=== PATIENT | female | born 1985 | race Caucasian/White ===

== ENCOUNTER 2020-05-04 05:55 | Inpatient (IN) | payer BC ==
--- NOTE | 2020-05-03 12:53 | P.HPOB ---
History of Present Illness H&P Date: 05/03/20 Chief Complaint: Requesting induction of labor This patient is a pleasant 34-year-old 1 para 0 female estimated date of confinement 05/09/2020 estimated gestational age 39-2/7 weeks who presents to labor and delivery for induction of labor. Patient transferred to [facility] at approximately 32 weeks from [place]. Patient's history is such that she lived there for approximately 13 years with her and this was a planned . Unfortunately in the middle of the unexpectedly from a myocardial infarction. Patient subsequently moved back to [place] to be with her family. Patient's is complicated by advanced maternal age. She did have genetic testing which was normal and she's had normal testing with growth ultrasounds and nonstress tests. Patient's cervix is now favorable and I recommend she proceed with delivery. Review of Systems Genitourinary: Reports Menstruation: Reports amenorrhea Past Medical History Past Medical History: No Reported History History of Any Multi-Drug Resistant Organisms: None Reported Past Surgical History: Adenoidectomy, Tonsillectomy Past Anesthesia/Blood Transfusion Reactions: No Reported Reaction Past Psychological History: No Psychological Hx Reported Smoking Status: Former smoker Past Alcohol Use History: None Reported Past Drug Use History: None Reported Medications and Allergies Home Medications Medication Instructions Recorded Confirmed Type Aspirin EC [Ecotrin Low Dose] 1 PO DAILY 05/03/20 History Exam - OBG Physical Exam Abdomen: bowel sounds normal, no diffuse tenderness, no bruit present, no guarding noted, no hepatomegaly, no splenomegaly, no mass Vulva: both: normal Vagina: normal moisture, no discharge Cervix: Cervix in the office is 2 cm dilated and soft. Uterus: enlarged (Otherwise 38 cm.) Results blood work shows she is O positive, rubella immune, RPR nonreactive, HIV is nonreactive, hepatitis B is negative, Glucola was 142 with a normal three-hour gtt., free cell DNA was negative (46 XX), most recent growth ultrasound showed to be at the 62nd percentile. Group B strep was negative. Assessment and Plan Assessment: This is a pleasant 34-year-old 1 para 0 female 39-2/7 weeks gestation who is presenting for requested induction of labor. Plan is induction of labor and anticipate vaginal delivery. (1) 39 weeks gestation of Status: Acute Code(s): Z3A.39 - 39 WEEKS GESTATION OF SNOMED Code(s): 21889209 (2) Elderly primigravida Status: Acute Code(s): O09.519 - SUPERVISION OF ELDERLY PRIMIGRAVIDA, UNSPECIFIED TRIMESTER SNOMED Code(s): 64823499 (3) Elective induction of labor planned Status: Acute Code(s): LVL0058 - SNOMED Code(s): 946490267
[2020-05-04] MEDS ORDERED: METHYLERGONOVINE 0.2 MG/ML 1 ML AMP IM PRN (06:10)
[2020-05-04] MEDS ORDERED: TERBUTALINE 1 MG/ML VIAL SQ PRN (06:10)
[2020-05-04] MEDS ORDERED: OXYTOCIN 30 UNITS/500 ML NS 30 UNIT in SALINE 1 500ML.BAG IV SCH (06:10)
[2020-05-04] MEDS ORDERED: CARBOPROST TROMETHAMINE 250 MCG/ML 1 ML AMP IM PRN (06:10)
[2020-05-04] MEDS ORDERED: OXYTOCIN 10 UNIT/ML 1 ML VIAL IM PRN (06:10)
[2020-05-04] MEDS ORDERED: LIDOCAINE 0.5% (PF) 5 MG/ML (50 ML SDV) SQ PRN (06:10)
[2020-05-04] MEDS: LACTATED RINGERS 1,000 ML IV SCH ×3 (06:20→12:00)
[2020-05-04 06:29] LABS: Basophils % (A) 0 %; Eosinophils # (A) 0.2 k/uL (0-0.7); Eosinophils % (A) 2 %; HCT 36.9 % (34.0-46.0); HGB 11.6 gm/dL (11.4-16.0); Hypochromasia Slight; Lymphocytes # (A) 2.7 k/uL (1.0-4.8); Lymphocytes % (A) 19 %; MCH 25.3 pg (25.0-35.0); MCHC 31.4 g/dL (31.0-37.0); MCV 80.4 fL (80.0-100.0); Mean Platelet Volume 8.4; Monocytes # (A) 0.5 k/uL (0-1.0); Monocytes % (A) 4 %; Neutrophils # (A) 10.7 k/uL (1.3-7.7); Neutrophils % (A) 74 %; Platelet Count 349 k/uL (150-450); RBC 4.59 m/uL (3.80-5.40); RDW 15.2 % (11.5-15.5); WBC 14.4 k/uL (3.8-10.6)
[2020-05-04] MEDS ORDERED: BUTORPHANOL 1 MG/ML 1 ML VIAL IV PRN (11:02)
[2020-05-04] MEDS ORDERED: ROPIVACAINE 5MG/ML 20ML VIAL ONE (11:19)
[2020-05-04] MEDS ORDERED: ePHEDrine SULFATE/0.9% NACL/PF 50 MG/5 ML SYRINGE IV ONE (11:19)
[2020-05-04] MEDS ORDERED: SODIUM CHLORIDE 0.9% 100 ML BAG ONE (11:19)
[2020-05-04] MEDS ORDERED: fentaNYL (PF) 50 MCG/ML 5 ML AMP ONE (11:19)
[2020-05-04] MEDS ORDERED: OXYTOCIN 20 UNITS/1000 ML NS 1,000 ML IV SCH (15:57)
[2020-05-04] MEDS ORDERED: bisacodyL 10 MG SUPP RECTAL PRN (15:57)
[2020-05-04] MEDS ORDERED: diphenhydrAMINE 25 MG CAP PO PRN (15:57)
[2020-05-04] MEDS ORDERED: diphenhydrAMINE 50 MG/ML 1 ML VIAL IVP PRN (15:57)
[2020-05-04] MEDS ORDERED: ACETAMINOPHEN TAB 325 MG TAB PO PRN (15:57)
[2020-05-04] MEDS ORDERED: LANOLIN CREAM 5 GM TUBE TOPICAL PRN (15:57)
[2020-05-04] MEDS ORDERED: HYDROCORTISONE 2.5% RECTAL CREAM 30 GM TUBE RECTAL PRN (15:57)
[2020-05-04] MEDS ORDERED: SIMETHICONE 80 MG CHEWABLE PO PRN (15:57)
[2020-05-04] MEDS ORDERED: ZOLPIDEM 5 MG TAB PO PRN (15:57)
[2020-05-04] MEDS ORDERED: BENZOCAINE/MENTHOL SPRAY 1 GM/SPRAY AEROSOL TOPICAL PRN (15:57)
[2020-05-04] MEDS: SENNOSIDES-DOCUSATE SODIUM 1 EACH TAB PO SCH ×2 (16:39→19:56)
--- NOTE | 2020-05-04 16:40 | P.PROBDLV ---
Vaginal Delivery Note - . Vaginal Delivery Note: Normal vaginal delivery viable female Apgars 9 and 9 delivery time was 1535 hrs. Please see dictated H&P for intimate details of this patient's admission. In brief summary this is a pleasant 34-year-old 1 para 0 female 39-2/7 weeks gestation who is admitted to labor and delivery for elective induction of labor. On admission patient is 3-4 cm dilated has artificial rupture membranes for clear fluid. Patient's labor is induced with Pitocin per protocol. She gets one dose of Stadol and then an epidural for pain control. Patient's labor progresses quickly and she gets to complete. Patient pushes the head to the perineum and the posterior perineum is supported. We have controlled delivery of 's head over the intact perineum. Straight occiput posterior presentation. There is a loose nuchal cord which is reduced. Mouth and nares are bulb suctioned. Gentle downward traction we then have deliver the anterior posterior shoulder and rest this 's body. This is a vigorous viable female infant Apgars 9 and 9 delivery time is 1535 hrs. After delivery of the the umbilical cord is to quit pulsating then doubly clamped and cut. Placenta is then spontaneously delivered intact. Estimated blood loss is 200 mL. There is a second-degree laceration is repaired with 3-0 Vicryl usual fashion. Excellent reapproximation is noted. and mother are stable delivery room.
[2020-05-04] MEDS ORDERED: PRENATAL VIT-IRON-FOLIC ACID 1 EACH CAP PO ONE (17:00)
[2020-05-05] MEDS: IBUPROFEN 600 MG TAB PO PRN ×3 (03:28→18:47)
--- NOTE | 2020-05-05 06:36 | P.PNOBGVD ---
Subjective - Subjective Patient reports: Reports appetite normal, Reports voiding normally, Reports pain well controlled, Reports ambulating normally : doing well Objective - Latest Vital Signs Latest vital signs: Vital Signs Temp Pulse Resp BP Pulse Ox 05/05/20 04:00 98.1 F 82 16 124/71 100 05/04/20 20:00 99.0 F 93 16 124/76 100 05/04/20 17:53 98.1 F 90 16 123/74 05/04/20 17:23 99 16 123/71 05/04/20 16:53 85 16 128/70 05/04/20 16:38 83 16 130/71 05/04/20 16:23 88 16 125/65 05/04/20 16:08 98 16 126/61 05/04/20 15:53 98.1 F 98 16 123/61 Intake and Output 05/04/20 05/04/20 05/05/20 14:59 22:59 06:59 Intake Total 1999 420 Balance 1999 420 Intake: IV 1999 Oral 420 Other: # Voids 1 1 - Exam Lungs: bilateral: normal Chest: Normal S1, Normal S2 Extremities: Present: normal Abdomen: Present: normal appearance, soft Uterus: Present: normal, firm Assessment and Plan Assessment: day #1. Patient is resting without complaints and wishes to go home. Vital signs are stable and she is afebrile. Uterus is firm nontender. My impression is a normal course. Plan is to continue routine care discharge home later today. (1) 39 weeks gestation of Current Visit: No Status: Acute Code(s): Z3A.39 - 39 WEEKS GESTATION OF SNOMED Code(s): 98120622 (2) Elderly primigravida Current Visit: No Status: Acute Code(s): O09.519 - SUPERVISION OF ELDERLY PRIMIGRAVIDA, UNSPECIFIED TRIMESTER SNOMED Code(s): 07557668 (3) Elective induction of labor planned Current Visit: No Status: Acute Code(s): XKP1313 - SNOMED Code(s): 831045426
--- NOTE | 2020-05-05 06:40 | P.DS ---
Providers Date of admission: 05/04/20 05:55 Expected date of discharge: 05/05/20 Attending physician: Rodrigo Siddiqi Primary care physician: Stated None - Discharge Diagnosis(es) (1) 39 weeks gestation of Current Visit: No Status: Acute (2) Elderly primigravida Current Visit: No Status: Acute (3) Elective induction of labor planned Current Visit: No Status: Acute Hospital Course: Please see dictated H&P for intimate details of this patient's admission. Brief summary this is a pleasant 34-year-old 1 para 0 female 39-2/7 weeks gestation admitted for induction of labor. Patient is uncomplicated induction of labor was on have a vaginal delivery viable female infant. Please see dictated delivery note. day #1 patient wishes to go home felt stable for discharge home follow up with me in 6 weeks. Procedures: Induction of labor and normal vaginal delivery Patient Condition at Discharge: Good Plan - Discharge Summary New Discharge Prescriptions: New Ibuprofen [Motrin] 600 mg PO Q6HR PRN #40 tab PRN Reason: Mild Pain Or Fever >= 100.5 No Action Aspirin EC [Ecotrin Low Dose] 1 tab PO DAILY Pnv No.95/Ferrous Fum/Folic AC [ Multivitamin Tablet] 1 tab PO ONCE Discharge Medication List Aspirin EC [Ecotrin Low Dose] 1 tab PO DAILY 05/03/20 [History] Pnv No.95/Ferrous Fum/Folic AC [ Multivitamin Tablet] 1 tab PO ONCE 05/04/20 [History] Ibuprofen [Motrin] 600 mg PO Q6HR PRN #40 tab 05/05/20 [Rx] Follow up Appointment(s)/Referral(s): Rodrigo Siddiqi MD [STAFF PHYSICIAN] - 06/15/20 10:15 am Patient Instructions/Handouts: Vaginal Delivery (DC) Activity/Diet/Wound Care/Special Instructions: No intercourse or anything per vagina for 6 weeks. Please call if any fever, chills, excessive vaginal bleeding, and/or abdominal pain. Discharge Disposition: HOME SELF-CARE
[2020-05-05] MEDS: SENNOSIDES-DOCUSATE SODIUM 1 EACH TAB PO SCH ×2 (08:07→21:52)
--- NOTE | 2020-05-05 08:48 | US ---
EXAMINATION TYPE: US venous doppler duplex LE DATE OF EXAM: 05/05/2020 8:09 AM COMPARISON: NONE CLINICAL HISTORY: left foot redness. edema, heat and pain . SIDE PERFORMED: Bilateral TECHNIQUE: The lower extremity deep venous system is examined utilizing real time linear array sonog vaibhav with graded compression, doppler sonography and color-flow sonography. VESSELS IMAGED: External Iliac Vein (EIV) Common Femoral Vein Deep Femoral Vein Greater Saphenous Vein * Femoral Vein Popliteal Vein Small Saphenous Vein * Proximal Calf Veins (* superficial vessels) . There is normal flow, compressibility, vascular waveforms. Right Leg: Negative for DVT Left Leg: Negative for DVT IMPRESSION: No evident deep venous thrombosis at or above the knees.
[2020-05-05] MEDS: CEPHALEXIN 500 MG CAP PO SCH ×3 (11:31→22:04)
[2020-05-05] MEDS ORDERED: CEPHALEXIN 500 MG CAP PO SCH (13:00)
[2020-05-06] MEDS: IBUPROFEN 600 MG TAB PO PRN ×2 (02:02→08:18)
--- NOTE | 2020-05-06 06:48 | P.PNOBGVD ---
Subjective - Subjective Patient reports: Reports appetite normal, Reports voiding normally, Reports pain well controlled, Reports ambulating normally : doing well Objective - Latest Vital Signs Latest vital signs: Vital Signs Temp Pulse Resp BP Pulse Ox 05/06/20 00:00 98.0 F 72 16 125/83 99 05/05/20 20:00 98.2 F 82 16 124/82 98 05/05/20 16:00 98.0 F 74 16 117/70 98 05/05/20 08:00 98.1 F 89 18 124/76 97 Intake and Output 05/05/20 05/05/20 05/06/20 14:59 22:59 06:59 Other: # Voids 1 2 1 Assessment and Plan Assessment: day #2. Patient developed some left foot swelling and pain and evaluation showed this to be a superficial phlebitis. Bilateral Dopplers did not show evidence of DVT. I placed the patient on Keflex and continue her baby aspirin and it looked markedly better by this morning. Plan is to discharge home. Continue antibiotics for 7 days and we discussed signs and symptoms of DVT. (1) 39 weeks gestation of Current Visit: No Status: Acute Code(s): Z3A.39 - 39 WEEKS GESTATION OF SNOMED Code(s): 78198855 (2) Elderly primigravida Current Visit: No Status: Acute Code(s): O09.519 - SUPERVISION OF ELDERLY PRIMIGRAVIDA, UNSPECIFIED TRIMESTER SNOMED Code(s): 65660884 (3) Elective induction of labor planned Current Visit: No Status: Acute Code(s): TPD3370 - SNOMED Code(s): 405 646514
[2020-05-06] MEDS: SENNOSIDES-DOCUSATE SODIUM 1 EACH TAB PO SCH (08:06)
[2020-05-06] MEDS: CEPHALEXIN 500 MG CAP PO SCH ×2 (08:18→12:00)
[2020-05-06] MEDS ORDERED: ASPIRIN 81 MG PO SCH (09:00)
[2020-05-06 10:04] VITALS: RESP 18
[2020-05-06 11:30] VITALS: BP 126/64; PULSE 84; TEMP 98
== END 2020-05-06 16:00 | disposition home or self-care (01) | DRG 806 ==
LOC: 4FBP 05:55
PROVIDERS: ADMIT Obstetrics & Gynecology; ATTEND Obstetrics & Gynecology
DX: O69.81X0 Labor and delivery complicated by cord around neck, without compression, not applicable or unspecified (principal); O87.0 Superficial thrombophlebitis in the puerperium; Z37.0 Single live birth; O70.1 Second degree perineal laceration during delivery; Z3A.39 39 weeks gestation of pregnancy; Z87.891 Personal history of nicotine dependence; Z79.82 Long term (current) use of aspirin; Z90.89 Acquired absence of other organs
CPT/HCPCS: 85025; 86850; 86900; 86901; 93970

== ENCOUNTER → 2021-11-25 | Outpatient (CLI) | payer BC ==
--- NOTE | 2021-11-29 08:31 | MM ---
Reason for exam: screening (asymptomatic). Baseline mammogram. History: Patient had first child at age 34. Family history of breast cancer in maternal aunt. Took hormonal contraceptives for 3 years. Physical Findings: Nurse did not find any significant physical abnormalities on exam. MG 3D Screening Mammo W/Cad Bilateral CC and MLO view(s) were taken. The breast tissue is heterogeneously dense. This may lower the sensitivity of mammography. Finding: There is a 4 mm obscured round mass located 4 cm from the nipple. ASSESSMENT: Incomplete: need additional imaging evaluation, BI-RAD 0 RECOMMENDATION: Ultrasound of the right breast. [facility] will attempt to contact patient to return for ultrasound.
== END | disposition home or self-care (01) ==
LOC: RADMAMWWP 10:12
PROVIDERS: ATTEND Obstetrics & Gynecology
DX: Z12.31 Encounter for screening mammogram for malignant neoplasm of breast (principal); Z80.3 Family history of malignant neoplasm of breast
CPT/HCPCS: 77063; 77067

== ENCOUNTER → 2021-12-06 | Outpatient (CLI) | payer BC ==
--- NOTE | 2021-12-06 08:52 | USB ---
Reason for exam: additional evaluation requested from abnormal screening. History: Patient had first child at age 34. Family history of breast cancer in maternal aunt. Took hormonal contraceptives for 3 years. Physical Findings: A clinical breast exam by your physician is recommended on an annual basis and results should be correlated with mammographic findings. US Breast Workup Limited RT Right limited breast ultrasound including focal area of concern, retroareolar and axilla demonstrates no cystic or solid lesion seen. These results were verbally communicated with the patient and result sheet given to the patient on 12/06/21. ASSESSMENT: Incomplete: need additional imaging evaluation, BI-RAD 0 RECOMMENDATION: Special view mammogram of the right breast.
--- NOTE | 2021-12-06 08:54 | MM ---
Reason for exam: additional evaluation requested from abnormal screening. Last mammogram was performed less than 1 month ago. History: Patient had first child at age 34. Family history of breast cancer in maternal aunt. Took hormonal contraceptives for 3 years. MG 3D Work Up W/Cad RT Spot compression CC and LM view(s) were taken of the right breast. Prior study comparison: November 25, 2021, bilateral MG 3d screening mammo w/cad. The breast tissue is heterogeneously dense. This may lower the sensitivity of mammography. No distinct lesion persists. These results were verbally communicated with the patient and result sheet given to the patient on 12/06/21. ASSESSMENT: Negative, BI-RAD 1 RECOMMENDATION: Routine screening mammogram of both breasts at age 39.
== END | disposition home or self-care (01) ==
LOC: RADUSWWP 07:47
PROVIDERS: ATTEND Obstetrics & Gynecology
DX: R92.8 Other abnormal and inconclusive findings on diagnostic imaging of breast (principal); Z80.3 Family history of malignant neoplasm of breast
CPT/HCPCS: 77061; 77065

== ENCOUNTER → 2023-01-02 | Outpatient (CLI) | payer BC ==
--- NOTE | 2023-01-02 13:17 | US ---
EXAMINATION TYPE: US pelvic complete DATE OF EXAM: 01/02/2023 COMPARISON: NONE CLINICAL HISTORY: R10.30 LOWER ABD PAIN. TECHNIQUE: Transabdominal (TA). Date of LMP: 12/20/2022 EXAM MEASUREMENTS: Uterus: 9.4 x 3.9 x 5.4 cm Endometrial Stripe: 1.3 cm Right Ovary: 2.4 x 1.8 x 3.5 cm Left Ovary: 3.5 x 2.8 x 3.6 cm 1. Uterus: Anteverted small posterior fibroid measures 1.1 x 1.1 x 1.8 cm. 2. Endometrium: measures 1.3 cm 3. Right Ovary: wnl 4. Left Ovary: 2.4 x 1.8 x 2.6 cm cyst. 5. Bilateral Adnexa: wnl 6. Posterior cul-de-sac: no free fluid Preliminary results called to Nohemi Nowak, 2.6 cm left ovarian cyst, and small uterine fibroid. Heterogeneous anteverted uterus. Endometrial stripe is abnormally thickened for a late proliferative phase of menstrual cycle. There is 1.8 cm subserosal fibroid in the posterior fundus. Consider follow -up based on clinical correlation. No free fluid. Ovaries symmetric and normal in size. Left ovary has 2.6 cm thin-walled cyst suspected corpus luteal cyst. No suspicious extra ovarian adnexal masses. IMPRESSION: No concerning adnexal masses are present. Small posterior 1.8 cm subserosal fibroid.
== END | disposition home or self-care (01) ==
LOC: RADUSWWP 12:29
PROVIDERS: ATTEND Family Medicine
DX: D25.2 Subserosal leiomyoma of uterus (principal); R10.30 Lower abdominal pain, unspecified
CPT/HCPCS: 76856

== ENCOUNTER → 2023-03-12 | Outpatient (CLI) | payer BC ==
--- NOTE | 2023-03-12 13:03 | US ---
EXAMINATION TYPE: US pelvic complete DATE OF EXAM: 03/12/2023 COMPARISON: Pelvic ultrasound 01/02/2023 CLINICAL INDICATION: Female, 37 years old with history of N83.202 OVARIAN CYST LT; h/o left ovarian c yst and fibroid, no symptoms today TECHNIQUE: TA. Transabdominal sonographic images of the pelvis were acquired. Date of LMP: 03/05/2023 EXAM MEASUREMENTS: Uterus: 9.0 x 4.2 x 3.6 cm Endometrial Stripe: 0.6 cm Right Ovary: 2.7 x 2.2 x 2.1 cm Left Ovary: 3.0 x 1.5 x 1.8 cm 1. Uterus: Anteverted 1.3 x 1.1 x 0.9cm posterior fundal fibroid seen 2. Endometrium: wnl 3. Right Ovary: multiple follicles under 1cm, wnl 4. Left Ovary: multiple follicles under 1cm, wnl 5. Bilateral Adnexa: wnl 6. Posterior cul-de-sac: wnl Heterogenous anteverted uterus. Endometrial stripe is within normal limits. There is a 1.3 cm subsero tg fibroid in the posterior fundus redemonstrated. No free fluid. Both ovaries appear unremarkable w ith a few follicles demonstrate it. Previously seen left ovarian cyst has decreased in size. IMPRESSION: 1. No acute pelvic process. 2. Small posterior subserosal fibroid redemonstrated.
== END | disposition home or self-care (01) ==
LOC: RADUSWWP 12:23
PROVIDERS: ATTEND Family Medicine
DX: N83.202 Unspecified ovarian cyst, left side (principal); D25.2 Subserosal leiomyoma of uterus
CPT/HCPCS: 76856

== ENCOUNTER 2023-06-06 11:40 | Day surgery (SDC) | payer BC ==
[2023-06-01 13:24] VITALS: BMI 24.3
[2023-06-06] MEDS ORDERED: LACTATED RINGERS 1,000 ML IV SCH (12:29)
[2023-06-06] MEDS ORDERED: LIDOCAINE 1% (10MG/ML) FOR IV START INTRADERMA PRN (12:29)
[2023-06-06] MEDS ORDERED: LACTATED RINGERS 1,000 ML IV ONE (12:29)
[2023-06-06 12:47] VITALS: TEMP 97
[2023-06-06] MEDS ORDERED: PROPOFOL 10 MG/ML 20 ML VIAL IV ONE (12:48)
--- NOTE | 2023-06-06 13:03 | P.PCN ---
Date of Procedure: 06/06/23 Procedure(s) Performed: BRIEF HISTORY: Patient is a 37-year-old pleasant white female scheduled for an elective colonoscopy as a part of evaluation of intermittent rectal bleeding. PROCEDURE PERFORMED: Colonoscopy with snare polypectomy. PREOPERATIVE DIAGNOSIS: Intermittent rectal bleeding. IV sedation per Anesthesia. PROCEDURE: After informed consent was obtained, the patient, was brought into the endoscopy unit. IV sedation was administered by Anesthesia under continuous monitoring. Digital rectal examination was normal. Initially the Olympus CF-160 flexible video colonoscope was then inserted in the rectum, gradually advanced into the cecum without any difficulty. Careful examination was performed as the scope was gradually being withdrawn. Ileocecal valve and the appendiceal orifice were visualized and appeared normal. Prep was excellent. Mucosa of the cecum, ascending colon, transverse colon, descending colon, sigmoid colon, appeared normal. In the distal sigmoid colon there was a 5 mm polyp removed by snare polypectomy. Rest of the and rectum appeared normal. Retroflexion was performed in the rectum and small internal hemorrhoids were seen. The patient tolerated the procedure well. IMPRESSION: 5 mm distal sigmoid colon polyp status post polypectomy Small internal hemorrhoids RECOMMENDATIONS: Findings of this examination were discussed with the patient as well as a family. She was advised to be a high-fiber diet and take fiber supplements a regular basis. Avoid straining and constipation. Follow with the biopsy results and if the biopsy reveals adenoma she can have a repeat colonoscopy in 5 years.
[2023-06-06 13:14] VITALS: PULSE 63
[2023-06-06 13:26] VITALS: BP 117/80; RESP 16
== END 2023-06-06 13:58 | disposition home or self-care (01) ==
LOC: ORWHC2ENDO 11:40
PROVIDERS: ATTEND Internal Medicine Gastroenterology
DX: D12.5 Benign neoplasm of sigmoid colon (principal); K64.8 Other hemorrhoids; Z79.899 Other long term (current) drug therapy
CPT/HCPCS: 81025; 88305; 45385; J2704

== ENCOUNTER → 2023-11-21 | Outpatient (CLI) | payer BC ==
--- NOTE | 2023-11-21 20:58 | US ---
EXAMINATION TYPE: US transvaginal DATE OF EXAM: 11/21/2023 COMPARISON: NONE CLINICAL INDICATION: Female, 38 years old with history of N83.201 BILATERAL OVARIAN CYSTS Z80.41 FAMI LY HISTORY; mother had ovarian CA last year, no symptoms, TECHNIQUE: TV. Transvaginal sonographic images Date of LMP: 11/10/2023 EXAM MEASUREMENTS: Uterus: 9.8 x 4.5 x 4.4 cm Endometrial Stripe: 0.9 cm Right Ovary: 4.1 x 3.6 x 2.3 cm Left Ovary: 2.8 x 1.6 x 2.2 cm 1. Uterus: Anteverted wnl 2. Endometrium: wnl 3. Right Ovary: 2.2 x 1.6 x 1.5cm simple cyst 4. Left Ovary: 0.9cm follicle seen 5. Bilateral Adnexa: wnl 6. Posterior cul-de-sac: wnl IMPRESSION: 1. Endometrium within normal limits for thickness. 2. No evidence for mass. 3. The right ovary demonstrates a simple dominant follicle. 4. No lymphadenopathy identified.
== END | disposition home or self-care (01) ==
LOC: RADUSWWP 16:05
PROVIDERS: ATTEND Obstetrics & Gynecology
DX: N83.201 Unspecified ovarian cyst, right side (principal); Z80.41 Family history of malignant neoplasm of ovary
CPT/HCPCS: 76830

== ENCOUNTER → 2024-11-03 | Outpatient (CLI) | payer BC ==
--- NOTE | 2024-11-03 13:35 | US ---
EXAMINATION TYPE: US pelvic complete DATE OF EXAM: 11/03/2024 COMPARISON: NONE CLINICAL INDICATION: Female, 39 years old with history of Z12.31 BR CA SCR Z80.41 FAM HX OVARIAN CANC ER; hx of ovarian cyst family hx of ovarian ca. TECHNIQUE: Transabdominal (TA). Doppler imaging: Not performed. FINDINGS: EXAM MEASUREMENTS: Uterus: 8.7 x 5.3 x 6.4 cm Endometrial Stripe: 1.0 cm Right Ovary: 3.2 x 1.6 x 2.1 cm Left Ovary: 3.8 x 3.2 x 2.7 cm 1. Uterus: Anteverted Hypoechoic area posterior 1.3 x 1.0 x 1.5 cm. 2. Endometrium: wnl 3. Right Ovary: Follicles seen. 4. Left Ovary: 3.8 x 3.2 x 2.7 cm 5. Bilateral Adnexa: wnl 6. Posterior cul-de-sac: wnl Anteverted uterus with redemonstration of small posterior subserosal fibroid. Endometrium is within n ormal limits. Both ovaries appear unremarkable with follicles demonstrated. Dominant follicular cyst within the left ovary. No free fluid. IMPRESSION: 1. No acute pelvic process. 2. Redemonstration of small posterior subserosal. [facility], , 11/03/2024 1:33 PM
--- NOTE | 2024-11-03 14:58 | MM ---
Reason for Exam: Screening (asymptomatic). Last mammogram was performed 2 year(s) and 11 month(s) ago. Patient History: Menarche at age 11. First Full-Term at age 34. Late child-bearing (after 29). Patient used Hormonal Contraceptives for 3 years. Maternal aunt had breast cancer. Last menstrual period: 10/25/2024 Risk Values: Grace 5 year model risk: 0.8%. NCI Lifetime model risk: 13.6%. Prior Study Comparison: 11/25/2021 Bilateral Screening Mammogram, [facility]. 12/06/2021 Right Diagnostic Mammogram, [facility]. Tissue Density: The breasts are heterogeneously dense, which may obscure small masses. Findings: Analyzed By CAD. Right breast: There is no suspicious group of microcalcifications or new suspicious mass. Left breast: There is no suspicious group of microcalcifications or new suspicious mass. Overall Assessment: Negative, BI-RAD 1 Management: Screening Mammogram of both breasts in [address] [facility] will attempt to contact patient to return for supplemental views and ultrasound if indicated. Patient should continue monthly self-breast exams. A clinical breast exam by your physician is recommended on an annual basis. This exam should not preclude additional follow-up of suspicious palpable abnormalities. Note on Grace scores and lifetime risk: 1. A Grace score greater than 3% is considered moderate risk. If this is the case, consider specialist referral to assess eligibility for a risk reducing agent. 2. If overall lifetime risk for the development of breast cancer is 20% or higher, the patient may qualify for future screening with alternating mammogram and breast MRI. [facility], , 11/03/2024 2:55 PM. Electronically signed and approved by: Gabriel Lutz DO
== END | disposition home or self-care (01) ==
LOC: RADUSWWP 12:58
PROVIDERS: ATTEND Family Medicine
DX: Z12.31 Encounter for screening mammogram for malignant neoplasm of breast (principal); R92.333 Mammographic heterogeneous density, bilateral breasts; Z80.41 Family history of malignant neoplasm of ovary; Z85.3 Personal history of malignant neoplasm of breast; Z80.3 Family history of malignant neoplasm of breast
CPT/HCPCS: 76856; 77063; 77067

== ENCOUNTER → 2024-11-07 | Outpatient (CLI) | payer BC | END | disposition home or self-care (01) | LOC: LABWHC1 12:21 | PROVIDERS: ATTEND Physician Assistant Medical | DX: Z80.41 Family history of malignant neoplasm of ovary (principal) | CPT/HCPCS: 36415; 86304 ==